=== PATIENT | male | born 1950 | race Caucasian/White ===

== ENCOUNTER 2016-07-21 07:01 | Day surgery (SDC) | payer MEDICARE ==
--- NOTE | ~2016-07-21 | EGD ---
EGD REPORT [facility] [address] [place] [place] [address] NAME: BRENDEN HUNTER : [birth year] STATUS : REG [facility]#: [id number] AGE: 65 ADM/REG DATE : 07/21/16 MR#: [id number] REPORT SERV DATE: 07/21/16 DICTATED BY: BORIS MILLS DATE: 07/21/16 REPORT STATUS : Draft [facility]ANS[facility]: [facility] DATE: 07/21/16 End[facility] Center Patient Name: Brenden Hunter Date of : 1950 Attending MD: BORIS MILLS MD Procedure Date No Time: 07/21/2016 Procedure: Colonoscopy Indications: High risk colon cancer surveillance: Personal history of colonic polyps, FH of Colon Cancer - 1st degree relative, FH of Colonic Polyps - 1st degree relative Referring MD: LEONEL SPRAGUE Medicines: as per anesthesia Complications: No immediate complications. Procedure: Pre-Anesthesia Assessment: - ASA Grade Assessment: III - A patient with severe systemic disease. After I obtained informed consent, the scope was passed under direct vision. Throughout the procedure, the patient's blood pressure, pulse, and oxygen saturations were monitored continuously. The PCF [id number] was introduced through the anus and advanced to the cecum, identified by appendiceal orifice and ileocecal valve. The colonoscopy was somewhat difficult due to restricted mobility of the colon, significant looping and a tortuous colon. The patient tolerated the procedure. The quality of the bowel preparation was adequate to identify polyps. Findings: The perianal and digital rectal examinations were normal. A sessile polyp was found in the ascending colon. The polyp was 6 mm in size. The polyp was removed with a jumbo cold forceps. Resection and retrieval were complete. A few small and large-mouthed diverticula were found in the sigmoid colon and in the descending colon. Internal hemorrhoids were found during endoscopy and were mild. Impression: - One 6 mm polyp in the ascending colon. Resected and retrieved. - Diverticulosis in the sigmoid colon and in the descending colon. - Internal hemorrhoids. Recommendation: - Await pathology results. - Repeat colonoscopy for surveillance based on pathology EGD REPORT [address] [address] NAME: BRENDEN HUNTER : [birth year] STATUS [place] [facility] [place] [id number] AGE: 65 ADM/REG DATE : 07/21/16 MR#: [id number] REPORT SERV DATE: 07/21/16 DICTATED BY: BORIS MILLS. DATE: 07/21/16 REPORT STATUS : Draft TRANSCRIBED BY: [employer] DATE: 07/21/16 results. Procedure Code(s): --- Professional --- 72535, Colonoscopy, flexible, proximal to splenic flexure; with biopsy, single or multiple Diagnosis Code(s): --- Professional --- D12.2, Benign neoplasm of ascending colon K64.8, Other hemorrhoids K57.30, Diverticulosis of large intestine without perforation or abscess without bleeding Z86.010, Personal history of colonic polyps Z80.0, Family history of malignant neoplasm of digestive organs Z83.71, Family history of colonic polyps CPT copyright 2013 [employer] [place] [employer]. All rights reserved. The codes documented in this report are preliminary and upon invoice coder review may be revised to meet current compliance requirements. BORIS MILLS MD 07/21/2016 8:53 AM This report has been signed electronically. Number of Addenda: 0 Note Initiated On: 07/21/2016 8:17 AM Scope Withdrawal Time 0 hours 13 minutes 39 seconds [id number] [id number]
[~2016-07-21 07:01] MED LIST: ASA; ASAB PO; LEVEMFLXPN SC; LEXAPRO10 PO; LIPITOR20 PO; NEXIUM40 PO; NOVOLOG SC; PRILOSEC40 MG PO; SLO-NIACIN500 MG PO; TOPXL25 PO
== END 2016-07-21 23:59 | disposition home or self-care (01) ==
LOC: DMU 07:01
PROVIDERS: Internal Medicine Gastroenterology
PROC: 0DBK8ZX Excision of Ascending Colon, Via Natural or Artificial Opening Endoscopic, Diagnostic (ICD-10-PCS; principal; 2016-07-21 08:30)
DX: D12.2 Benign neoplasm of ascending colon (principal); K64.8 Other hemorrhoids; K57.30 Diverticulosis of large intestine without perforation or abscess without bleeding; Z86.010 Personal history of colon polyps; Z80.0 Family history of malignant neoplasm of digestive organs; Z83.71 Family history of colonic polyps; K21.9 Gastro-esophageal reflux disease without esophagitis; E11.9 Type 2 diabetes mellitus without complications; I25.2 Old myocardial infarction; Z98.890 Other specified postprocedural states
CPT/HCPCS: 82962; 88305